=== PATIENT | male | born 1950 | race Caucasian/White ===

== ENCOUNTER → 2018-11-24 | Outpatient (CLI) | payer MEDICARE | END | disposition home or self-care (01) | LOC: CARD 13:53 | PROVIDERS: ATTEND Internal Medicine Cardiovascular Disease | DX: I27.0 Primary pulmonary hypertension (principal); I82.409 Acute embolism and thrombosis of unspecified deep veins of unspecified lower extremity; R06.02 Shortness of breath | CPT/HCPCS: 94060; 94726; 94729 ==

== ENCOUNTER → 2018-12-10 | Outpatient (CLI) | payer MEDICARE | END | disposition home or self-care (01) | LOC: RAD 08:50 | PROVIDERS: ATTEND Family Medicine | DX: R91.1 Solitary pulmonary nodule (principal); I82.409 Acute embolism and thrombosis of unspecified deep veins of unspecified lower extremity; I27.0 Primary pulmonary hypertension | CPT/HCPCS: 71045; 78582; A9540; A9558 ==